=== PATIENT | male | born 1940 | race Caucasian/White ===

== ENCOUNTER 2024-11-23 11:29 | Inpatient (IN) | payer MEDICARE, MEDICAID ==
[~2024-11-23] VITALS: Ht 165.1 cm; Wt 73.0 kg
[~2024-11-23 11:29] MED LIST: DIVA250T4 PO; DOCU-119 PO; LISI-661 PO; OMEP-148 PO; RISP1TAB89 PO
[2024-11-23] MEDS ORDERED: CHOL25TA4 PO (12:07)
[2024-11-23] MEDS ORDERED: LISI-894 PO (12:07)
[2024-11-23] MEDS ORDERED: METF-1211 PO (12:07)
[2024-11-23] MEDS ORDERED: HYDR10TA31 PO (12:07)
[2024-11-23] MEDS ORDERED: AMAN-24 PO (12:07)
[2024-11-23] MEDS ORDERED: DILT-121 PO (12:07)
[2024-11-23] MEDS ORDERED: OLAN5TAB52 PO (12:07)
[2024-11-23] MEDS ORDERED: DAPA10TA PO (12:07)
[2024-11-23] MEDS ORDERED: VALP250S23 PO ×2 (12:07)
[2024-11-23] MEDS: ACETAMINOPHEN 500 MG TABLET PO ONE (12:34)
[2024-11-23 12:35] LABS: BASOPHILS % (AUTO) 0.5 % (0.0-2.0); EOSINOPHILS % (AUTO) 2.1 % (1.0-6.0); HEMATOCRIT 37.1 % (41-53); HEMOGLOBIN 12.2 g/dL (13.5-17.5); LYMPHOCYTES # (AUTO) 1.9 K/uL (1.0-4.8); LYMPHOCYTES % (AUTO) 20.7 % (22.0-44.0); MEAN CORPUSCULAR HEMOGLOBIN 28.9 pg (26.0-34.0); MEAN CORPUSCULAR VOLUME 88 fL (80-100); MONOCYTES % (AUTO) 10.5 % (2.0-9.0); NEUTROPHILS # (AUTO) 6.1 K/uL (1.8-7.7); NEUTROPHILS % (AUTO) 66.2 % (40.0-70.0); PLATELET COUNT (AUTO) 318 K/uL (150-450); RED BLOOD CELL COUNT(AUTO) 4.23 MIL/uL (4.50-5.90); RED CELL DISTRIBUTION WIDTH 15.8 % (11.5-14.5); WHITE BLOOD COUNT (AUTO) 9.2 K/uL (4.5-11.0)
[2024-11-23 12:43] LABS: ANION GAP 11 mmol/L (8-16); CARBON DIOXIDE 24 mmol/L (22-29); CHLORIDE 101 mmol/L (98-107); CREATININE 1.15 mg/dL (0.60-1.30); GLOMERULAR FILTR. RATE CALC > 60 mL/min (>60); GLUCOSE,RANDOM 118 mg/dL (70-110); POTASSIUM 4.2 mmol/L (3.5-5.1); SODIUM SERUM 136 mmol/L (136-145); UREA NITROGEN, BLOOD 19 mg/dL (7-18)
[2024-11-23 12:51] LABS: ALCOHOL, BLOOD (SERUM) < 3 mg/dL (0-10)
[2024-11-23 12:55] LABS: ALBUMIN 2.8 g/dL (3.4-5.0); BILIRUBIN,DIRECT 0.1 mg/dL (0.00-0.20); BILIRUBIN,TOTAL 0.2 mg/dL (0.1-1.0); TOTAL PROTEIN, SERUM 6.9 g/dL (6.4-8.2)
[2024-11-23 12:58] LABS: COVID AG,FIA SOURCE NASAL SWAB
[2024-11-23 14:36] LABS: SARS-COV2 (COVID) ANTIGEN,FIA Negative (Negative)
[2024-11-23 22:01] LABS: APPEARANCE,URINE CLEAR (CLEAR); BILIRUBIN,URINE NEGATIVE (NEGATIVE); COLOR,URINE LIGHT YELLOW (YELLOW); GLUCOSE, URINE (UA) >=1000 mg/dL (NEGATIVE); KETONES,URINE NEGATIVE (NEGATIVE); LEUKOCYTE ESTERASE ,URINE TRACE (NEGATIVE); NITRATE,URINE NEGATIVE (NEGATIVE); OCCULT BLOOD,URINE NEGATIVE (NEGATIVE); PROTEIN,URINE TRACE mg/dL (NEGATIVE); UROBILINOGEN,URINE <=1.0 mg/dL (<=1.0)
[2024-11-23 22:10] LABS: ALCOHOL, URINE DRUG SCREEN NEGATIVE (NEGATIVE); AMPHET/METH SCREEN,URINE NEGATIVE (NEGATIVE); BARBITURATE SCREEN, URINE NEGATIVE (NEGATIVE); BENZODIAZEPINES SCREEN,URINE NEGATIVE (NEGATIVE); CANNABINOID SCREEN,URINE NEGATIVE (NEGATIVE); COCAINE SCREEN,URINE NEGATIVE (NEGATIVE); METHADONE SCREEN, URINE NEGATIVE (NEGATIVE); OPIATE SCREEN,URINE NEGATIVE (NEGATIVE); PHENCYCLIDINE SCREEN,URINE NEGATIVE (NEGATIVE)
[2024-11-23 22:22] LABS: BACTERIA,URINE Few /HPF (None Seen); RBC,URINE 0-2 /HPF (0-2); WBC,URINE 0-2 /HPF (0-5)
[2024-11-23 22:23] LABS: SQUAMOUS EPITHELIAL CELL,UR Rare /LPF (None Seen)
[2024-11-24] MEDS ORDERED: ZOLPIDEM TARTRATE 10 MG TABLET PO PRN (01:30)
[2024-11-24] MEDS ORDERED: LORazepam 2 MG TABLET PO PRN (01:30)
[2024-11-24] MEDS: CloNIDine HCL 0.1 MG TABLET PO ONE (03:55)
[2024-11-24] MEDS: HydrALAZINE HCL 10 MG TABLET PO ONE (04:04)
[2024-11-24 04:46] VITALS: O2SAT 97
[2024-11-24 06:32] LABS: GLUCOMETER DEV NAME(LOC) BV2S.; GLUCOSE,POINT OF CARE 112 MG/DL (70-110)
[2024-11-24 06:42] VITALS: BP 155/84; PULSE 63; RESP 16; TEMP 97.8; O2SAT 98
[2024-11-24 08:08] VITALS: BP 133/88; PULSE 69; RESP 18; TEMP 97; O2SAT 96
[2024-11-24] MEDS ORDERED: ONDANSETRON 4 MG TABLET PO PRN (15:45)
[2024-11-24] MEDS ORDERED: GLUCAGON,HUMAN RECOMBINANT 1 MG VIAL IM PRN (15:45)
[2024-11-24] MEDS ORDERED: OMEPRAZOLE 20 MG CAPSULE PO PRN (15:45)
[2024-11-24] MEDS ORDERED: ALBUTEROL SULFATE HFA 90 MCG/PUFF 8 GM INHALER IH PRN (15:45)
[2024-11-24] MEDS ORDERED: BENZOCAINE/MENTHOL [CEPACOL] LOZENGE PO PRN (15:45)
[2024-11-24] MEDS ORDERED: BACITRACIN 28 GM OINTMENT TP PRN (15:45)
[2024-11-24] MEDS ORDERED: CloNIDine HCL 0.1 MG TABLET PO PRN (15:45)
[2024-11-24] MEDS ORDERED: MAG HYDROX/ALUMINUM HYD/SIMETH ES 30 ML SUSPENSION UDCUP PO PRN (15:45)
[2024-11-24] MEDS ORDERED: MAGNESIUM HYDROXIDE SUSPENSION 30 ML UDCUP PO PRN (15:45)
[2024-11-24] MEDS ORDERED: LOPERAMIDE HCL 2 MG CAPSULE PO PRN (15:45)
[2024-11-24] MEDS ORDERED: PETROLATUM,WHITE 28 GM JELLY TP PRN (15:45)
[2024-11-24] MEDS ORDERED: DOCUSATE SODIUM 100 MG CAPSULE PO PRN (15:45)
[2024-11-24] MEDS ORDERED: MELATONIN 5 MG TABLET PO PRN (17:00)
[2024-11-24] MEDS ORDERED: ChlorproMAZINE HCL 100 MG TABLET PO PRN (17:00)
[2024-11-24] MEDS: MetFORMIN HCL 500 MG TABLET PO SCH (17:00)
[2024-11-24] MEDS ORDERED: LORazepam 0.5 MG TABLET PO PRN (17:00)
[2024-11-24] MEDS: HydrALAZINE HCL 10 MG TABLET PO SCH (17:00)
[2024-11-24 20:00] VITALS: BP 155/88; PULSE 77; RESP 16; TEMP 98.4; O2SAT 97
[2024-11-24] MEDS: VALPROIC ACID 250 MG/5 ML SOLUTION UDCUP PO SCH (21:35)
[2024-11-24] MEDS: OLANZapine 5 MG TABLET PO SCH (21:36)
[2024-11-24] MEDS: INSULIN LISPRO 100 UNITS/ML SQ PRN (21:45)
[2024-11-24 21:56] LABS: GLUCOMETER DEV NAME(LOC) BV2X.3; GLUCOSE,POINT OF CARE 158 MG/DL (70-110)
[2024-11-25 06:35] LABS: GLUCOMETER DEV NAME(LOC) BV2X.3; GLUCOSE,POINT OF CARE 107 MG/DL (70-110)
[2024-11-25 08:41] VITALS: BP 143/87; PULSE 98; RESP 17; TEMP 97.8; O2SAT 97
[2024-11-25] MEDS: LISINOPRIL 20 MG TABLET PO SCH (09:56)
[2024-11-25] MEDS: AMANTADINE HCL 100 MG CAPSULE PO SCH (09:56)
[2024-11-25] MEDS: DAPAGLIFLOZIN PROPANEDIOL 5 MG TABLET PO SCH (09:57)
[2024-11-25] MEDS: DILTIAZEM HCL CD 240 MG ER CAPSULE PO SCH (09:57)
[2024-11-25 11:35] LABS: GLUCOMETER DEV NAME(LOC) BV2X.3; GLUCOSE,POINT OF CARE 164 MG/DL (70-110)
[2024-11-25 16:25] LABS: GLUCOMETER DEV NAME(LOC) BV2X.3; GLUCOSE,POINT OF CARE 118 MG/DL (70-110)
[2024-11-25 20:01] VITALS: RESP 18
[2024-11-25] MEDS: ACETAMINOPHEN 325 MG TABLET PO PRN (20:01)
[2024-11-25 20:20] LABS: GLUCOMETER DEV NAME(LOC) BV2X.3; GLUCOSE,POINT OF CARE 161 MG/DL (70-110)
[2024-11-25 21:01] VITALS: RESP 18
[2024-11-25 21:45] VITALS: BP 137/57; PULSE 63; RESP 18; TEMP 97.6; O2SAT 98
[2024-11-26 06:25] LABS: GLUCOMETER DEV NAME(LOC) BV2X.3; GLUCOSE,POINT OF CARE 81 MG/DL (70-110)
[2024-11-26] MEDS: IBUPROFEN 600 MG TABLET PO PRN (06:37)
[2024-11-26 07:00] VITALS: BP 141/64; PULSE 67; RESP 18; TEMP 97.5; O2SAT 97
[2024-11-26 08:00] VITALS: RESP 17
[2024-11-26] MEDS ORDERED: GuaiFENesin/D-METHORPHAN [SUGAR-FREE] 200-20MG/10 ML SYRUP UDCUP PO PRN (10:30)
[2024-11-26] MEDS ORDERED: MAG HYDROX/ALUMINUM HYD/SIMETH ES 30 ML SUSPENSION UDCUP PO PRN (10:30)
[2024-11-26] MEDS ORDERED: PROMETHAZINE HCL 25 MG TABLET PO PRN (10:30)
[2024-11-26] MEDS ORDERED: ACETAMINOPHEN 325 MG TABLET PO PRN (10:30)
[2024-11-26] MEDS ORDERED: LOPERAMIDE HCL 2 MG CAPSULE PO PRN (10:30)
[2024-11-26] MEDS ORDERED: HydrOXYzine PAMOATE 50 MG CAPSULE PO PRN (10:30)
[2024-11-26] MEDS ORDERED: MAGNESIUM HYDROXIDE SUSPENSION 30 ML UDCUP PO PRN (10:30)
[2024-11-26 11:25] LABS: GLUCOMETER DEV NAME(LOC) ER.7; GLUCOSE,POINT OF CARE 150 MG/DL (70-110)
[2024-11-26 11:41] LABS: GLUCOMETER DEV NAME(LOC) BV2X.3; GLUCOSE,POINT OF CARE 165 MG/DL (70-110)
[2024-11-26] MEDS ORDERED: LORazepam 1 MG TABLET PO PRN (14:00)
[2024-11-26 16:31] LABS: GLUCOMETER DEV NAME(LOC) BV2X.3; GLUCOSE,POINT OF CARE 171 MG/DL (70-110)
[2024-11-26] MEDS: THIAMINE 100 MG TABLET PO SCH (16:33)
[2024-11-26] MEDS: TUBERCULIN, PURIFIED PROTEIN DERIVATIVE 5 TU/0.1 ML SYRINGE ID ONE (17:53)
[2024-11-26 20:06] VITALS: BP 152/79; PULSE 69; RESP 18; TEMP 97.3; O2SAT 97
[2024-11-26 22:00] LABS: GLUCOMETER DEV NAME(LOC) BV2X.3; GLUCOSE,POINT OF CARE 136 MG/DL (70-110)
[2024-11-27 06:01] LABS: GLUCOMETER DEV NAME(LOC) BV2X.3; GLUCOSE,POINT OF CARE 126 MG/DL (70-110)
[2024-11-27 08:39] VITALS: BP 163/70; PULSE 61; RESP 17; TEMP 97.5; O2SAT 99
[2024-11-27] MEDS: OLANZapine 5 MG RAPDIS TABLET PO PRN (09:02)
[2024-11-27] MEDS: FOLIC ACID 1 MG TABLET PO SCH (09:03)
[2024-11-27] MEDS: MULTIVITAMINS WITH MINERALS, THERAPEUTIC TABLET PO SCH (09:03)
[2024-11-27 09:16] LABS: CHOL/HDL RATIO 3.1 (4.2-7.3); FREE T4 (FREE THYROXINE) 0.97 ng/dL (0.76-1.46); THYROID STIMULATING HORMONE 1.17 uIU/mL (0.36-3.74)
[2024-11-27 11:46] LABS: GLUCOMETER DEV NAME(LOC) BV2X.3; GLUCOSE,POINT OF CARE 130 MG/DL (70-110)
[2024-11-27 16:29] VITALS: BP 177/97; PULSE 70; RESP 18
[2024-11-27 17:00] LABS: GLUCOMETER DEV NAME(LOC) BV2X.3; GLUCOSE,POINT OF CARE 146 MG/DL (70-110)
[2024-11-27] MEDS: OLANZapine 5 MG TABLET PO SCH (17:33)
[2024-11-27 20:13] VITALS: BP 169/60; PULSE 60; RESP 18; TEMP 97.5; O2SAT 97
[2024-11-27 20:45] LABS: GLUCOMETER DEV NAME(LOC) BV2X.3; GLUCOSE,POINT OF CARE 131 MG/DL (70-110)
[2024-11-28 06:40] LABS: GLUCOMETER DEV NAME(LOC) BV2X.3; GLUCOSE,POINT OF CARE 105 MG/DL (70-110)
[2024-11-28 08:11] VITALS: BP 135/69; PULSE 65; RESP 18; TEMP 98.4; O2SAT 98
[2024-11-28] MEDS ORDERED: VALP250S23 PO (11:10)
[2024-11-28] MEDS ORDERED: MELA5TAB40 PO (11:10)
[2024-11-28] MEDS ORDERED: AMAN-24 PO (11:10)
[2024-11-28] MEDS ORDERED: OLAN5TAB52 PO (11:10)
[2024-11-28] MEDS ORDERED: FOLI0.4T6 PO (11:50)
[2024-11-28] MEDS ORDERED: FOLI-130 PO (11:51)
[2024-11-28] MEDS ORDERED: MULT-1303 PO (11:51)
[2024-11-28 13:06] LABS: GLUCOMETER DEV NAME(LOC) BV2X.3; GLUCOSE,POINT OF CARE 137 MG/DL (70-110)
[2024-11-28 16:36] VITALS: BP 145/62; PULSE 60; RESP 18
[2024-11-28 16:45] LABS: GLUCOMETER DEV NAME(LOC) BV2X.3; GLUCOSE,POINT OF CARE 181 MG/DL (70-110)
[2024-11-28 20:40] VITALS: BP 145/62; PULSE 60; RESP 17; TEMP 98.1; O2SAT 96
[2024-11-28 20:41] LABS: GLUCOMETER DEV NAME(LOC) BV2X.3; GLUCOSE,POINT OF CARE 150 MG/DL (70-110)
[2024-11-29 06:06] LABS: GLUCOMETER DEV NAME(LOC) BV2X.3; GLUCOSE,POINT OF CARE 93 MG/DL (70-110)
[2024-11-29 08:24] VITALS: BP 158/69; PULSE 61; RESP 18; TEMP 97.2; O2SAT 97
[2024-11-29 12:40] LABS: GLUCOMETER DEV NAME(LOC) BV2X.3; GLUCOSE,POINT OF CARE 101 MG/DL (70-110)
[2024-11-29 20:19] VITALS: BP 144/65; PULSE 60; RESP 18; TEMP 97.8; O2SAT 96
[2024-11-30 06:35] LABS: GLUCOMETER DEV NAME(LOC) BV2X.3; GLUCOSE,POINT OF CARE 101 MG/DL (70-110)
[2024-11-30 08:08] VITALS: BP 117/74; PULSE 58; RESP 16; TEMP 97.4; O2SAT 96
[2024-11-30 12:01] LABS: GLUCOMETER DEV NAME(LOC) BV2X.3; GLUCOSE,POINT OF CARE 164 MG/DL (70-110)
[2024-11-30 21:50] VITALS: BP 139/62; PULSE 58; RESP 20; TEMP 96.6; O2SAT 97
[2024-12-01 03:36] LABS: GLUCOMETER DEV NAME(LOC) BV2X.3; GLUCOSE,POINT OF CARE 137 MG/DL (70-110)
[2024-12-01 03:36] LABS: GLUCOMETER DEV NAME(LOC) BV2X.3; GLUCOSE,POINT OF CARE 155 MG/DL (70-110)
[2024-12-01 07:10] LABS: GLUCOMETER DEV NAME(LOC) BV2X.3; GLUCOSE,POINT OF CARE 120 MG/DL (70-110)
[2024-12-01 08:05] VITALS: BP 146/78; PULSE 61; RESP 18; TEMP 98.3; O2SAT 97
[2024-12-01 11:35] LABS: GLUCOMETER DEV NAME(LOC) BV2X.3; GLUCOSE,POINT OF CARE 119 MG/DL (70-110)
[2024-12-01 12:36] VITALS: BP 137/59; PULSE 60; RESP 18; O2SAT 97
[2024-12-01 16:40] LABS: GLUCOMETER DEV NAME(LOC) BV2X.3; GLUCOSE,POINT OF CARE 166 MG/DL (70-110)
[2024-12-01 20:00] VITALS: RESP 18
[2024-12-01 20:56] LABS: GLUCOMETER DEV NAME(LOC) BV2X.3; GLUCOSE,POINT OF CARE 155 MG/DL (70-110)
[2024-12-02 06:00] LABS: GLUCOMETER DEV NAME(LOC) BV2X.3; GLUCOSE,POINT OF CARE 97 MG/DL (70-110)
[2024-12-02 08:39] VITALS: BP 148/78; PULSE 62; RESP 18; TEMP 97.1; O2SAT 97
[2024-12-02 11:46] LABS: GLUCOMETER DEV NAME(LOC) BV2X.3; GLUCOSE,POINT OF CARE 99 MG/DL (70-110)
[2024-12-02 16:50] LABS: GLUCOMETER DEV NAME(LOC) BV2X.3; GLUCOSE,POINT OF CARE 246 MG/DL (70-110)
[2024-12-02 20:53] VITALS: BP 145/60; PULSE 65; RESP 18; TEMP 98.3; O2SAT 95
[2024-12-02 22:41] LABS: GLUCOMETER DEV NAME(LOC) BV2X.3; GLUCOSE,POINT OF CARE 159 MG/DL (70-110)
[2024-12-03 06:25] LABS: GLUCOMETER DEV NAME(LOC) BV2X.3; GLUCOSE,POINT OF CARE 98 MG/DL (70-110)
[2024-12-03 08:35] VITALS: BP 134/84; PULSE 63; RESP 20; TEMP 98.2; O2SAT 96
[2024-12-03 11:50] LABS: GLUCOMETER DEV NAME(LOC) BV2X.3; GLUCOSE,POINT OF CARE 166 MG/DL (70-110)
[2024-12-03 18:21] LABS: GLUCOMETER DEV NAME(LOC) BV2X.3; GLUCOSE,POINT OF CARE 165 MG/DL (70-110)
[2024-12-03 20:50] LABS: GLUCOMETER DEV NAME(LOC) BV2X.3; GLUCOSE,POINT OF CARE 118 MG/DL (70-110)
[2024-12-03 21:30] VITALS: BP 137/60; PULSE 62; RESP 18; TEMP 97.1; O2SAT 96
[2024-12-04 08:15] VITALS: BP 134/62; PULSE 58; RESP 18; TEMP 98; O2SAT 95
[2024-12-04 13:50] VITALS: BP 127/66; PULSE 57; RESP 17; O2SAT 96
[2024-12-04 14:11] LABS: GLUCOMETER DEV NAME(LOC) BV2X.3; GLUCOSE,POINT OF CARE 122 MG/DL (70-110)
[2024-12-04 16:38] VITALS: BP 119/64; PULSE 60; RESP 18; O2SAT 96
[2024-12-04 16:40] LABS: GLUCOMETER DEV NAME(LOC) BV2X.3; GLUCOSE,POINT OF CARE 162 MG/DL (70-110)
[2024-12-04 20:08] VITALS: BP 103/58; PULSE 60; RESP 17; TEMP 97.5; O2SAT 95
[2024-12-04 20:45] LABS: GLUCOMETER DEV NAME(LOC) BV2X.3; GLUCOSE,POINT OF CARE 109 MG/DL (70-110)
[2024-12-05 06:01] LABS: GLUCOMETER DEV NAME(LOC) BV2X.3; GLUCOSE,POINT OF CARE 102 MG/DL (70-110)
[2024-12-05 08:00] VITALS: BP 147/71; PULSE 61; RESP 16; TEMP 98.4; O2SAT 97
[2024-12-05 11:51] LABS: GLUCOMETER DEV NAME(LOC) BV2X.3; GLUCOSE,POINT OF CARE 145 MG/DL (70-110)
[2024-12-05 16:39] VITALS: BP 136/68; PULSE 60; RESP 18
[2024-12-05 16:40] LABS: GLUCOMETER DEV NAME(LOC) BV2X.3; GLUCOSE,POINT OF CARE 194 MG/DL (70-110)
[2024-12-05 20:03] VITALS: BP 129/66; PULSE 60; RESP 18; TEMP 97.8; O2SAT 97
[2024-12-05 20:40] LABS: GLUCOMETER DEV NAME(LOC) BV2X.3; GLUCOSE,POINT OF CARE 116 MG/DL (70-110)
[2024-12-06 06:01] LABS: GLUCOMETER DEV NAME(LOC) BV2X.3; GLUCOSE,POINT OF CARE 93 MG/DL (70-110)
[2024-12-06 08:34] VITALS: BP 129/63; PULSE 68; RESP 17; TEMP 97.7; O2SAT 96
[2024-12-06 12:15] LABS: GLUCOMETER DEV NAME(LOC) BV2X.3; GLUCOSE,POINT OF CARE 132 MG/DL (70-110)
[2024-12-06 16:56] LABS: GLUCOMETER DEV NAME(LOC) BV2X.3; GLUCOSE,POINT OF CARE 199 MG/DL (70-110)
[2024-12-06 20:09] VITALS: BP 116/60; PULSE 60; RESP 18; TEMP 97.8; O2SAT 95
[2024-12-06 21:05] LABS: GLUCOMETER DEV NAME(LOC) BV2X.3; GLUCOSE,POINT OF CARE 152 MG/DL (70-110)
[2024-12-07] MEDS: ZOLPIDEM TARTRATE 5 MG TABLET PO PRN (01:37)
[2024-12-07 06:51] LABS: GLUCOMETER DEV NAME(LOC) BV2X.3; GLUCOSE,POINT OF CARE 109 MG/DL (70-110)
[2024-12-07 08:18] VITALS: BP 140/74; PULSE 64; RESP 18; TEMP 97.5; O2SAT 96
[2024-12-07 12:01] LABS: GLUCOMETER DEV NAME(LOC) BV2X.3; GLUCOSE,POINT OF CARE 238 MG/DL (70-110)
== END 2024-12-07 13:00 | DRG 885 ==
LOC: EMS 12:38 → B2S 11-24 04:00 → B2X 11-24 18:08
PROVIDERS: ADMIT Psychiatry & Neurology Psychiatry; ATTEND Psychiatry & Neurology Psychiatry
DX: F20.0 Paranoid schizophrenia (principal); Z59.00 Homelessness unspecified; I10 Essential (primary) hypertension; Z20.822 Contact with and (suspected) exposure to COVID-19; J44.9 Chronic obstructive pulmonary disease, unspecified; K59.00 Constipation, unspecified; K02.9 Dental caries, unspecified; E11.9 Type 2 diabetes mellitus without complications; K21.9 Gastro-esophageal reflux disease without esophagitis; D64.9 Anemia, unspecified; F17.200 Nicotine dependence, unspecified, uncomplicated
CPT/HCPCS: 71046; 80048; 80061; 80076; 80164; 80307; 81001; 82962; 84439; 84443; 85025; 87081; G0480; 36415-L1; 36415-TC

== ENCOUNTER 2025-04-17 17:22 | Inpatient (IN) | payer MEDICARE, MEDICAID ==
[~2025-04-17] VITALS: Ht 167.6 cm; Wt 64.0 kg
[~2025-04-17 17:22] MED LIST changes: +AMAN-24 PO; +DAPA10TA PO; +DILT-121 PO; -DIVA250T4 PO; -DOCU-119 PO; +FOLI-130 PO; +HYDR10TA31 PO; -LISI-661 PO; +LISI-894 PO; +MELA5TAB40 PO; +METF-1211 PO; +MULT-1303 PO; +OLAN5TAB52 PO; -OMEP-148 PO; -RISP1TAB89 PO; +VALP250S23 PO
[2025-04-17] MEDS ORDERED: LORA0.5T20 PO (17:53)
[2025-04-17 18:16] LABS: PLATELET COUNT (AUTO) 264 K/uL (150-450); RED BLOOD CELL COUNT(AUTO) 5.53 MIL/uL (4.50-5.90); RED CELL DISTRIBUTION WIDTH 16.0 % (11.5-14.5); WHITE BLOOD COUNT (AUTO) 8.6 K/uL (4.5-11.0)
[2025-04-17 18:22] LABS: CALCIUM, TOTAL 9.3 mg/dL (8.8-10.5); CREATININE 1.82 mg/dL (0.60-1.30); GLOMERULAR FILTR. RATE CALC 36.0 mL/min (>60); GLUCOSE,RANDOM 180.0 mg/dL (70-110); SODIUM SERUM 139.0 mmol/L (136-145); UREA NITROGEN, BLOOD 45.0 mg/dL (7-18)
[2025-04-17] MEDS: LORazepam 2 MG/ML VIAL IM ONE (19:11)
[2025-04-17] MEDS: SODIUM CHLORIDE 0.9% 2,000 ML IV ONE (20:18)
[2025-04-17 20:37] LABS: COVID AG,FIA SOURCE NASAL SWAB
[2025-04-17 20:59] LABS: SARS-COV2 (COVID) ANTIGEN,FIA Negative (Negative)
[2025-04-17] MEDS ORDERED: ZOLPIDEM TARTRATE 10 MG TABLET PO PRN (21:15)
[2025-04-18 05:25] LABS: PLATELET COUNT (AUTO) 216 K/uL (150-450); RED BLOOD CELL COUNT(AUTO) 5.14 MIL/uL (4.50-5.90); RED CELL DISTRIBUTION WIDTH 16.0 % (11.5-14.5); WHITE BLOOD COUNT (AUTO) 8.8 K/uL (4.5-11.0)
[2025-04-18 06:27] LABS: ASPARTATE AMINOTRANSFERASE 27.0 U/L (15-37); CALCIUM, TOTAL 8.6 mg/dL (8.8-10.5); CHOL/HDL RATIO 2.7 (4.2-7.3); CREATININE 1.59 mg/dL (0.60-1.30); GLOMERULAR FILTR. RATE CALC 42.0 mL/min (>60); GLUCOSE,RANDOM 122.0 mg/dL (70-110); LDL CHOL (CALC.) 71.0 mg/dL (0-130); SODIUM SERUM 144.0 mmol/L (136-145); TOTAL PROTEIN, SERUM 6.5 g/dL (6.4-8.2); UREA NITROGEN, BLOOD 42.0 mg/dL (7-18)
[2025-04-18 06:30] VITALS: O2SAT 95
[2025-04-18] MEDS: DILTIAZEM HCL CD 240 MG ER CAPSULE PO SCH (10:30)
[2025-04-18] MEDS: DAPAGLIFLOZIN PROPANEDIOL 5 MG TABLET PO SCH (10:30)
[2025-04-18 12:43] VITALS: PULSE 74; RESP 18; O2SAT 97
[2025-04-18] MEDS ORDERED: ACETAMINOPHEN 325 MG TABLET PO PRN (16:00)
[2025-04-18] MEDS ORDERED: ONDANSETRON 4 MG TABLET PO PRN (16:00)
[2025-04-18] MEDS ORDERED: LOPERAMIDE HCL 2 MG CAPSULE PO PRN (16:00)
[2025-04-18] MEDS ORDERED: GuaiFENesin/D-METHORPHAN [SUGAR-FREE] 200-20MG/10 ML SYRUP UDCUP PO PRN (16:00)
[2025-04-18] MEDS ORDERED: NICOTINE 14 MG/24 HOUR PATCH TD PRN (16:00)
[2025-04-18] MEDS ORDERED: PETROLATUM,WHITE 28 GM JELLY TP PRN (16:00)
[2025-04-18] MEDS ORDERED: MAG HYDROX/ALUMINUM HYD/SIMETH ES 30 ML SUSPENSION UDCUP PO PRN (16:00)
[2025-04-18] MEDS ORDERED: DOCUSATE SODIUM 100 MG CAPSULE PO PRN (16:00)
[2025-04-18] MEDS ORDERED: MAGNESIUM HYDROXIDE SUSPENSION 30 ML UDCUP PO PRN (16:00)
[2025-04-18] MEDS ORDERED: ALBUTEROL SULFATE HFA 90 MCG/PUFF 8 GM INHALER IH PRN (16:00)
[2025-04-18] MEDS: OLANZapine 5 MG RAPDIS TABLET PO SCH (17:00)
[2025-04-18] MEDS: DIVALPROEX SODIUM 125 MG DR CAPSULE PO SCH (17:00)
[2025-04-18] MEDS: LORazepam 2 MG/ML VIAL IM ONE (20:06)
[2025-04-18] MEDS: MELATONIN 5 MG TABLET PO SCH (21:00)
[2025-04-18 21:25] LABS: GLUCOMETER DEV NAME(LOC) 3E.I 2; GLUCOSE,POINT OF CARE 101 MG/DL (70-110)
[2025-04-18 21:26] VITALS: RESP 18
[2025-04-19 08:29] VITALS: RESP 17
[2025-04-19 20:39] VITALS: RESP 18
[2025-04-20 08:32] VITALS: RESP 18
[2025-04-20] MEDS: LORazepam 2 MG/ML VIAL IM ONE (10:37)
[2025-04-20 17:50] LABS: GLUCOMETER DEV NAME(LOC) 3E.I 2; GLUCOSE,POINT OF CARE 213 MG/DL (70-110)
[2025-04-20 21:21] VITALS: RESP 17
[2025-04-21 10:07] LABS: CALCIUM, TOTAL 8.7 mg/dL (8.8-10.5); CREATININE 1.23 mg/dL (0.60-1.30); GLOMERULAR FILTR. RATE CALC 56.0 mL/min (>60); GLUCOSE,RANDOM 99.0 mg/dL (70-110); SODIUM SERUM 142.0 mmol/L (136-145); UREA NITROGEN, BLOOD 33.0 mg/dL (7-18)
[2025-04-21 10:13] LABS: CHOL/HDL RATIO 2.2 (4.2-7.3); LDL CHOL (CALC.) 65.0 mg/dL (0-130)
[2025-04-21 20:42] VITALS: RESP 18
[2025-04-22 08:40] VITALS: RESP 18
[2025-04-23 10:18] VITALS: RESP 17
[2025-04-23 20:24] VITALS: RESP 18
[2025-04-23 21:41] LABS: GLUCOMETER DEV NAME(LOC) 3E.I 2; GLUCOSE,POINT OF CARE 148 MG/DL (70-110)
[2025-04-24 09:00] VITALS: RESP 17
[2025-04-24 20:20] VITALS: RESP 18
[2025-04-25 08:21] VITALS: RESP 18
[2025-04-25 19:35] VITALS: BP 199/97; PULSE 79; RESP 18
[2025-04-25 20:17] VITALS: BP 199/97; PULSE 79; RESP 18; O2SAT 98
[2025-04-25 20:35] VITALS: BP 150/92; PULSE 83; RESP 18
[2025-04-26 09:17] VITALS: RESP 17
[2025-04-26 22:23] VITALS: RESP 17; TEMP 98.1
[2025-04-27 08:32] VITALS: RESP 18
[2025-04-27 20:00] VITALS: RESP 18; TEMP 97.1
[2025-04-28 07:53] LABS: PLATELET COUNT (AUTO) 264 K/uL (150-450); RED BLOOD CELL COUNT(AUTO) 5.59 MIL/uL (4.50-5.90); RED CELL DISTRIBUTION WIDTH 16.6 % (11.5-14.5); WHITE BLOOD COUNT (AUTO) 6.8 K/uL (4.5-11.0)
[2025-04-28 08:17] LABS: CALCIUM, TOTAL 10.1 mg/dL (8.8-10.5); CREATININE 1.22 mg/dL (0.60-1.30); GLOMERULAR FILTR. RATE CALC 57.0 mL/min (>60); GLUCOSE,RANDOM 117.0 mg/dL (70-110); SODIUM SERUM 145.0 mmol/L (136-145); UREA NITROGEN, BLOOD 26.0 mg/dL (7-18)
[2025-04-28 08:20] LABS: PHOSPHORUS 3.6 mg/dL (2.5-4.9)
[2025-04-28 09:06] VITALS: RESP 16
[2025-04-29 10:03] VITALS: TEMP 98
[2025-04-29 21:00] VITALS: RESP 18
[2025-04-30 10:48] VITALS: RESP 18
[2025-04-30 20:29] VITALS: RESP 18
[2025-05-01 08:11] VITALS: RESP 16
[2025-05-01] MEDS ORDERED: DIVA125C20 PO (10:05)
== END 2025-05-01 16:05 | disposition home or self-care (01) | DRG 885 ==
LOC: EMS 17:22 → 3EX 04-18 09:25
PROVIDERS: ADMIT Psychiatry & Neurology Child & Adolescent Psychiatry; ATTEND Psychiatry & Neurology Child & Adolescent Psychiatry
PROC: GZ56ZZZ Individual Psychotherapy, Supportive (ICD-10-PCS; 2025-04-18)
PROC: GZ58ZZZ Individual Psychotherapy, Cognitive-Behavioral (ICD-10-PCS; 2025-04-18)
PROC: GZ52ZZZ Individual Psychotherapy, Cognitive (ICD-10-PCS; 2025-04-22)
PROC: GZHZZZZ Group Psychotherapy (ICD-10-PCS; principal; 2025-04-26)
DX: F20.0 Paranoid schizophrenia (principal); N18.9 Chronic kidney disease, unspecified; F15.20 Other stimulant dependence, uncomplicated; Z59.00 Homelessness unspecified; I12.9 Hypertensive chronic kidney disease with stage 1 through stage 4 chronic kidney disease, or unspecified chronic kidney disease; J44.9 Chronic obstructive pulmonary disease, unspecified; F01.50 Vascular dementia, unspecified severity, without behavioral disturbance, psychotic disturbance, mood disturbance, and anxiety; E78.5 Hyperlipidemia, unspecified; E11.22 Type 2 diabetes mellitus with diabetic chronic kidney disease; K21.9 Gastro-esophageal reflux disease without esophagitis; E86.0 Dehydration; Z20.822 Contact with and (suspected) exposure to COVID-19; Z86.73 Personal history of transient ischemic attack (TIA), and cerebral infarction without residual deficits; Z87.891 Personal history of nicotine dependence; Z79.899 Other long term (current) drug therapy
CPT/HCPCS: 80048; 80053; 80061; 80164; 82962; 83036; 83735; 84100; 84436; 84443; 85025; 87081; 99291; G0378; G0480; J1200; J1630; J2060; J7030

== ENCOUNTER 2025-05-08 20:36 | Inpatient (IN) | payer MEDICARE, MEDICAID ==
[~2025-05-08] VITALS: Ht 167.6 cm; Wt 56.0 kg
[~2025-05-08 20:36] MED LIST changes: -DILT-121 PO; +DIVA125C20 PO; -FOLI-130 PO; -HYDR10TA31 PO; -LISI-894 PO; -MULT-1303 PO; -VALP250S23 PO
[2025-05-08] MEDS ORDERED: LORazepam 2 MG/ML VIAL ONE (22:29)
[2025-05-08] MEDS: LORazepam 2 MG/ML VIAL IM ONE (22:37)
[2025-05-08 22:54] LABS: PLATELET COUNT (AUTO) 228 K/uL (150-450); RED BLOOD CELL COUNT(AUTO) 6.44 MIL/uL (4.50-5.90); RED CELL DISTRIBUTION WIDTH 17.2 % (11.5-14.5); WHITE BLOOD COUNT (AUTO) 9.3 K/uL (4.5-11.0)
[2025-05-08 23:05] LABS: CREATININE 4.07 mg/dL (0.60-1.30); GLUCOSE,RANDOM 180 mg/dL (70-110); SODIUM SERUM 160 mmol/L (136-145)
[2025-05-08 23:06] LABS: CALCIUM, TOTAL 10.8 mg/dL (8.8-10.5); GLOMERULAR FILTR. RATE CALC 14 mL/min (>60)
[2025-05-08 23:11] LABS: ALCOHOL, BLOOD (SERUM) < 3 mg/dL (0-10)
[2025-05-08 23:18] LABS: ASPARTATE AMINOTRANSFERASE 39 U/L (15-37); TOTAL PROTEIN, SERUM 8.8 g/dL (6.4-8.2)
[2025-05-08 23:19] LABS: COVID AG,FIA SOURCE NPH
[2025-05-08 23:21] LABS: VALPROIC ACID < 3 mcg/mL (50-100)
[2025-05-08 23:22] LABS: UREA NITROGEN, BLOOD 127 mg/dL (7-18)
[2025-05-08 23:26] LABS: SARS-COV2 (COVID) ANTIGEN,FIA Negative (Negative)
[2025-05-09] MEDS: SODIUM CHLORIDE 0.9% 1,000 ML IV ONE ×2 (00:09→16:31)
[2025-05-09] MEDS: DEXTROSE 5%-WATER 1,000 ML IV ONE (03:59)
[2025-05-09 07:16] VITALS: BP_SYST 102; BP_SYST 116; BP_DIAS 70; PULSE 69; RESP 18; TEMP 96; TEMP 98; O2SAT 94
[2025-05-09] MEDS ORDERED: MAGNESIUM HYDROXIDE SUSPENSION 30 ML UDCUP PO PRN (13:15)
[2025-05-09] MEDS ORDERED: BISACODYL 10 MG RECTAL RECTAL SUPPOSITORY PR PRN (13:15)
[2025-05-09] MEDS ORDERED: ZOLPIDEM TARTRATE 5 MG TABLET PO PRN (13:15)
[2025-05-09] MEDS ORDERED: MORPHINE SULFATE 2 MG/ML SYRINGE IVP PRN (13:15)
[2025-05-09] MEDS ORDERED: ACETAMINOPHEN 325 MG TABLET PO PRN (13:15)
[2025-05-09] MEDS ORDERED: ONDANSETRON HCL 4 MG/2 ML VIAL IVP PRN (13:15)
[2025-05-09 15:08] VITALS: BP 126/71; PULSE 87; RESP 18; TEMP 97; O2SAT 96
[2025-05-09] MEDS: HEPARIN SODIUM,PORCINE 5,000 UNITS/ML VIAL SQ SCH (16:32)
[2025-05-09 20:39] VITALS: BP 150/84; PULSE 90; RESP 19; TEMP 97.5; O2SAT 97
[2025-05-09 20:44] VITALS: BP 150/84; PULSE 90; RESP 19; TEMP 97.3; O2SAT 94
[2025-05-09] MEDS: DOCUSATE SODIUM 100 MG CAPSULE PO SCH (21:00)
[2025-05-09] MEDS: DEXTROSE 5%-WATER 1,000 ML IV SCH (23:16)
[2025-05-10 00:23] VITALS: BP 153/90; PULSE 88; RESP 18
[2025-05-10 04:08] VITALS: BP 143/87; PULSE 84; RESP 18; TEMP 97.6; O2SAT 96
[2025-05-10 05:11] LABS: GLUCOMETER DEV NAME(LOC) 5N.2C; GLUCOSE,POINT OF CARE 169 MG/DL (70-110)
[2025-05-10 06:13] LABS: RED BLOOD CELL COUNT(AUTO) 5.14 MIL/uL (4.50-5.90); RED CELL DISTRIBUTION WIDTH 16.8 % (11.5-14.5); WHITE BLOOD COUNT (AUTO) 8.6 K/uL (4.5-11.0)
[2025-05-10 06:29] LABS: CALCIUM, TOTAL 9.6 mg/dL (8.8-10.5); CREATININE 3.64 mg/dL (0.60-1.30); GLOMERULAR FILTR. RATE CALC 16.0 mL/min (>60); GLUCOSE,RANDOM 180.0 mg/dL (70-110); SODIUM SERUM 160.0 mmol/L (136-145)
[2025-05-10 06:42] LABS: UREA NITROGEN, BLOOD 129.0 mg/dL (7-18)
[2025-05-10 06:55] LABS: PLATELET COUNT (AUTO) 172 K/uL (150-450)
[2025-05-10 08:10] VITALS: BP 132/86; PULSE 86; RESP 18; TEMP 98; O2SAT 97
[2025-05-10] MEDS: PANTOPRAZOLE SODIUM 40 MG DR TABLET PO SCH (08:33)
[2025-05-10 11:20] VITALS: BP 130/74; PULSE 67; RESP 18; TEMP 97.3; O2SAT 96
[2025-05-10 14:58] LABS: CALCIUM, TOTAL 9.6 mg/dL (8.8-10.5); CREATININE 3.07 mg/dL (0.60-1.30); GLOMERULAR FILTR. RATE CALC 20.0 mL/min (>60); GLUCOSE,RANDOM 157.0 mg/dL (70-110); SODIUM SERUM 158.0 mmol/L (136-145)
[2025-05-10 15:01] LABS: UREA NITROGEN, BLOOD 122.0 mg/dL (7-18)
[2025-05-10 16:08] VITALS: BP 138/80; PULSE 76; RESP 18; TEMP 98; O2SAT 97
[2025-05-10 19:16] VITALS: BP 140/87; PULSE 72; RESP 19; TEMP 97.5; O2SAT 95
[2025-05-11 00:36] VITALS: BP 138/91; PULSE 82; RESP 18; TEMP 98.4; O2SAT 95
[2025-05-11 04:10] VITALS: BP 146/88; PULSE 79; RESP 18; TEMP 97.5; O2SAT 95
[2025-05-11 06:03] LABS: CALCIUM, TOTAL 9.6 mg/dL (8.8-10.5); CREATININE 2.35 mg/dL (0.60-1.30); GLOMERULAR FILTR. RATE CALC 27.0 mL/min (>60); GLUCOSE,RANDOM 161.0 mg/dL (70-110); SODIUM SERUM 155.0 mmol/L (136-145)
[2025-05-11 06:05] LABS: PHOSPHORUS 3.5 mg/dL (2.5-4.9); UREA NITROGEN, BLOOD 102.0 mg/dL (7-18)
[2025-05-11 06:06] LABS: PLATELET COUNT (AUTO) 169 K/uL (150-450); RED BLOOD CELL COUNT(AUTO) 5.07 MIL/uL (4.50-5.90); RED CELL DISTRIBUTION WIDTH 16.9 % (11.5-14.5); WHITE BLOOD COUNT (AUTO) 8.1 K/uL (4.5-11.0)
[2025-05-11 06:49] LABS: CREATININE,URINE RANDOM 118.0 mg/dL (30.0-125.0); UREA NITROGEN,URINE RANDOM 1454.0 mg/dL (350-1000)
[2025-05-11 09:12] VITALS: BP 132/68; PULSE 62; RESP 17; TEMP 97.5
[2025-05-11 16:29] VITALS: BP 129/87; PULSE 65; RESP 18; TEMP 97.5; O2SAT 96
[2025-05-11 20:04] VITALS: BP 146/83; PULSE 64; RESP 19; O2SAT 96
[2025-05-12 08:22] VITALS: BP 144/77; PULSE 67; RESP 18; TEMP 98.2; O2SAT 96
[2025-05-12 11:39] VITALS: BP 135/74; PULSE 59; RESP 19; TEMP 97.5; O2SAT 97
[2025-05-12 11:52] LABS: PLATELET COUNT (AUTO) 167 K/uL (150-450); RED BLOOD CELL COUNT(AUTO) 4.87 MIL/uL (4.50-5.90); RED CELL DISTRIBUTION WIDTH 16.6 % (11.5-14.5); WHITE BLOOD COUNT (AUTO) 7.9 K/uL (4.5-11.0)
[2025-05-12 11:55] LABS: GLUCOMETER DEV NAME(LOC) 5S.2D; GLUCOSE,POINT OF CARE 135 MG/DL (70-110)
[2025-05-12 12:00] LABS: CALCIUM, TOTAL 8.8 mg/dL (8.8-10.5); CREATININE 1.79 mg/dL (0.60-1.30); GLOMERULAR FILTR. RATE CALC 37.0 mL/min (>60); GLUCOSE,RANDOM 127.0 mg/dL (70-110); SODIUM SERUM 151.0 mmol/L (136-145); UREA NITROGEN, BLOOD 69.0 mg/dL (7-18)
[2025-05-12 15:20] VITALS: BP 132/78; PULSE 70; RESP 18; TEMP 98; O2SAT 97
[2025-05-13 00:41] VITALS: BP 157/53; PULSE 53; RESP 18
[2025-05-13 05:51] VITALS: BP 171/86; PULSE 66; RESP 18; O2SAT 98
[2025-05-13 08:26] LABS: CALCIUM, TOTAL 9.1 mg/dL (8.8-10.5); CREATININE 1.59 mg/dL (0.60-1.30); GLOMERULAR FILTR. RATE CALC 42.0 mL/min (>60); GLUCOSE,RANDOM 142.0 mg/dL (70-110); SODIUM SERUM 146.0 mmol/L (136-145); UREA NITROGEN, BLOOD 58.0 mg/dL (7-18)
[2025-05-13 08:45] VITALS: BP 170/88; PULSE 82; RESP 19; TEMP 98; O2SAT 100
[2025-05-13 11:33] VITALS: BP 154/68; PULSE 78; RESP 20
[2025-05-13 15:15] VITALS: BP 142/82; PULSE 59; RESP 19; O2SAT 94
[2025-05-13 22:00] VITALS: BP 146/78; PULSE 76; RESP 20; TEMP 98.1; O2SAT 100
[2025-05-14 04:35] VITALS: BP 160/85; PULSE 66; RESP 18; O2SAT 96
[2025-05-14 05:56] LABS: GLUCOMETER DEV NAME(LOC) 6S.1D; GLUCOSE,POINT OF CARE 149 MG/DL (70-110)
[2025-05-14 07:15] LABS: CALCIUM, TOTAL 8.8 mg/dL (8.8-10.5); CREATININE 1.3 mg/dL (0.60-1.30); GLOMERULAR FILTR. RATE CALC 53.0 mL/min (>60); GLUCOSE,RANDOM 131.0 mg/dL (70-110); SODIUM SERUM 138.0 mmol/L (136-145); UREA NITROGEN, BLOOD 35.0 mg/dL (7-18)
[2025-05-14] MEDS: POTASSIUM CHLORIDE 10% 40 MEQ/30 ML LIQUID UDCUP PO ONE (14:00)
[2025-05-15 06:24] LABS: CALCIUM, TOTAL 8.9 mg/dL (8.8-10.5); CREATININE 1.14 mg/dL (0.60-1.30); GLOMERULAR FILTR. RATE CALC > 60 mL/min (>60); GLUCOSE,RANDOM 96 mg/dL (70-110); SODIUM SERUM 138 mmol/L (136-145); UREA NITROGEN, BLOOD 24 mg/dL (7-18)
[2025-05-15] MEDS: POTASSIUM CHLORIDE 20 MEQ ER TABLET PO ONE (12:45)
[2025-05-15] MEDS: LORazepam 2 MG/ML VIAL IM ONE (15:09)
[2025-05-15 20:06] VITALS: BP 115/73; PULSE 55; RESP 18; TEMP 97.7; O2SAT 97
[2025-05-16] MEDS: DEXTROSE 5%-LACTATED RINGERS 1,000 ML IV ONE (12:47)
[2025-05-17 05:29] VITALS: BP 164/85; PULSE 86; RESP 20; TEMP 98.2; O2SAT 96
[2025-05-17 06:18] VITALS: BP 144/75
[2025-05-17 06:52] LABS: PLATELET COUNT (AUTO) 237 K/uL (150-450); RED BLOOD CELL COUNT(AUTO) 4.74 MIL/uL (4.50-5.90); RED CELL DISTRIBUTION WIDTH 16.7 % (11.5-14.5); WHITE BLOOD COUNT (AUTO) 15.3 K/uL (4.5-11.0)
[2025-05-17 07:37] LABS: CALCIUM, TOTAL 9.1 mg/dL (8.8-10.5); CREATININE 1.22 mg/dL (0.60-1.30); GLOMERULAR FILTR. RATE CALC 57.0 mL/min (>60); GLUCOSE,RANDOM 106.0 mg/dL (70-110); SODIUM SERUM 140.0 mmol/L (136-145); UREA NITROGEN, BLOOD 20.0 mg/dL (7-18)
[2025-05-17] MEDS ORDERED: POTASSIUM CHLORIDE 20 MEQ ER TABLET PO PRN ×2 (13:00→15:00)
[2025-05-17] MEDS ORDERED: MAGNESIUM SULFATE 4 GM/WATER 100 ML IV PRN (13:00)
[2025-05-17] MEDS: MAGNESIUM OXIDE 400 MG TABLET PO PRN (13:44)
[2025-05-17] MEDS ORDERED: SODIUM CHLORIDE 0.9% 500 ML IV ONE (14:09)
[2025-05-17] MEDS: POTASSIUM CHL 10 MEQ/WATER 50 ML IV PRN (14:13)
[2025-05-17] MEDS ORDERED: POTASSIUM CHL 10 MEQ/WATER 50 ML IV PRN (15:00)
[2025-05-17] MEDS ORDERED: SODIUM CHLORIDE 0.9% 250 ML IV ONE (18:10)
[2025-05-17] MEDS: SODIUM BICARBONATE 75 MEQ IV ONE (18:22)
[2025-05-17] MEDS: [UNRECOGNIZED DRUG - OTHER] IV ONE (18:22)
[2025-05-17] MEDS: POTASSIUM CHLORIDE IV ONE (18:22)
[2025-05-17] MEDS: DEXTROSE IV ONE (18:22)
[2025-05-18] MEDS ORDERED: SODIUM CHLORIDE 0.9% 500 ML IV ONE (10:48)
[2025-05-18] MEDS: MAGNESIUM SULFATE 2 GM/WATER 50 ML IV PRN (13:34)
[2025-05-18 14:40] LABS: CALCIUM, TOTAL 8.8 mg/dL (8.8-10.5); CREATININE 1.22 mg/dL (0.60-1.30); GLOMERULAR FILTR. RATE CALC 57.0 mL/min (>60); GLUCOSE,RANDOM 121.0 mg/dL (70-110); SODIUM SERUM 139.0 mmol/L (136-145); UREA NITROGEN, BLOOD 13.0 mg/dL (7-18)
[2025-05-18 14:44] LABS: PHOSPHORUS 2.3 mg/dL (2.5-4.9)
[2025-05-18] MEDS: *CLINICAL-PERIPHERAL PARENTERAL NUTRITION DOSING CLINICAL ONE (15:55)
[2025-05-18] MEDS: SODIUM PHOS,M-BASIC-D-BASIC 10 MMOL in DEXTROSE 5%-WATER 100 ML IV ONE (19:59)
[2025-05-18 20:23] VITALS: BP 151/78; PULSE 78; RESP 20; TEMP 97.7; O2SAT 100
[2025-05-19] MEDS ORDERED: SODIUM CHLORIDE 0.9% 500 ML IV ONE (00:01)
[2025-05-19] MEDS: PPN SOLUTION 1 EA, SODIUM CHLORIDE 60 MEQ, SODIUM PHOS,M-BASIC-D-BASIC 20 MEQ, POTASSIU... IV SCH (00:04)
[2025-05-19 08:34] LABS: CALCIUM, TOTAL 9.0 mg/dL (8.8-10.5); CREATININE 1.32 mg/dL (0.60-1.30); GLOMERULAR FILTR. RATE CALC 52.0 mL/min (>60); GLUCOSE,RANDOM 127.0 mg/dL (70-110); SODIUM SERUM 141.0 mmol/L (136-145); UREA NITROGEN, BLOOD 14.0 mg/dL (7-18)
[2025-05-19 08:43] LABS: PHOSPHORUS 3.2 mg/dL (2.5-4.9)
[2025-05-19 09:15] VITALS: BP 184/82; PULSE 78; RESP 19; TEMP 97.7; O2SAT 98
[2025-05-19] MEDS: LABETALOL HCL 5 MG/ML 20 ML VIAL IVP ONE (10:11)
[2025-05-19] MEDS: NITROGLYCERIN 2% (1 GM=INCH) OINTMENT PACKET TP SCH (12:22)
[2025-05-19 12:55] VITALS: BP 150/88; PULSE 85
[2025-05-19] MEDS: RINGERS SOLUTION,LACTATED 1,000 ML IV ONE (16:52)
[2025-05-19 21:28] VITALS: BP 150/76; PULSE 66; RESP 20; TEMP 97.5
[2025-05-20 05:14] VITALS: BP 154/71; PULSE 73; RESP 18; TEMP 97.5
[2025-05-20 10:00] VITALS: BP 179/90; PULSE 80; RESP 18
[2025-05-20 11:10] LABS: CALCIUM, TOTAL 8.6 mg/dL (8.8-10.5); CREATININE 0.91 mg/dL (0.60-1.30); GLOMERULAR FILTR. RATE CALC > 60 mL/min (>60); GLUCOSE,RANDOM 120 mg/dL (70-110); SODIUM SERUM 134 mmol/L (136-145); UREA NITROGEN, BLOOD 17 mg/dL (7-18)
[2025-05-20 12:42] LABS: PHOSPHORUS 3.2 mg/dL (2.5-4.9)
[2025-05-20] MEDS ORDERED: PPN SOLUTION 1 EA, SODIUM CHLORIDE 80 MEQ, SODIUM PHOS,M-BASIC-D-BASIC 20 MEQ, POTASSIU... IV SCH (22:00)
[2025-05-20] MEDS: DIAZEPAM 5 MG/ML 2 ML SYRINGE IVP ONE (22:09)
[2025-05-20 22:25] VITALS: BP 136/76; PULSE 72; RESP 18; TEMP 97.7; O2SAT 94
[2025-05-21 08:47] LABS: CALCIUM, TOTAL 9.1 mg/dL (8.8-10.5); CREATININE 0.92 mg/dL (0.60-1.30); GLOMERULAR FILTR. RATE CALC > 60 mL/min (>60); GLUCOSE,RANDOM 89 mg/dL (70-110); SODIUM SERUM 135 mmol/L (136-145); UREA NITROGEN, BLOOD 17 mg/dL (7-18)
[2025-05-21 08:51] LABS: PHOSPHORUS 3.5 mg/dL (2.5-4.9)
[2025-05-21] MEDS: MAGNESIUM SULFATE 2 GM/WATER 50 ML IV ONE (11:00)
[2025-05-21] MEDS ORDERED: SODIUM CHLORIDE 0.9% 500 ML IV ONE (14:34)
[2025-05-21 15:35] VITALS: BP 159/94; PULSE 88; RESP 18; TEMP 97.2; O2SAT 98
[2025-05-21 15:37] VITALS: BP 159/94; PULSE 88; RESP 18; TEMP 97.2; O2SAT 98
[2025-05-21 20:00] VITALS: BP 140/67; PULSE 65; RESP 16; TEMP 97.5; O2SAT 95
[2025-05-22 04:00] VITALS: RESP 18
[2025-05-22 08:00] VITALS: RESP 18
[2025-05-22 09:14] LABS: CALCIUM, TOTAL 9.1 mg/dL (8.8-10.5); CREATININE 1.2 mg/dL (0.60-1.30); GLOMERULAR FILTR. RATE CALC 58.0 mL/min (>60); GLUCOSE,RANDOM 88.0 mg/dL (70-110); SODIUM SERUM 138.0 mmol/L (136-145); UREA NITROGEN, BLOOD 19.0 mg/dL (7-18)
[2025-05-22 09:37] LABS: PHOSPHORUS 3.6 mg/dL (2.5-4.9)
[2025-05-22 15:30] VITALS: RESP 18
[2025-05-23 06:05] VITALS: RESP 18
[2025-05-23 07:06] LABS: CALCIUM, TOTAL 9.0 mg/dL (8.8-10.5); CREATININE 1.24 mg/dL (0.60-1.30); GLOMERULAR FILTR. RATE CALC 56.0 mL/min (>60); GLUCOSE,RANDOM 113.0 mg/dL (70-110); SODIUM SERUM 135.0 mmol/L (136-145); UREA NITROGEN, BLOOD 22.0 mg/dL (7-18)
[2025-05-23 07:14] LABS: PHOSPHORUS 3.3 mg/dL (2.5-4.9)
[2025-05-23 08:00] VITALS: BP 175/84; PULSE 68; RESP 20
[2025-05-23] MEDS: MAGNESIUM SULFATE 2 GM/WATER 50 ML IV ONE (09:08)
[2025-05-24 09:42] LABS: CALCIUM, TOTAL 9.3 mg/dL (8.8-10.5); CREATININE 1.26 mg/dL (0.60-1.30); GLOMERULAR FILTR. RATE CALC 55.0 mL/min (>60); GLUCOSE,RANDOM 175.0 mg/dL (70-110); SODIUM SERUM 136.0 mmol/L (136-145); UREA NITROGEN, BLOOD 17.0 mg/dL (7-18)
[2025-05-24 09:43] LABS: PHOSPHORUS 3.0 mg/dL (2.5-4.9)
[2025-05-24 15:36] VITALS: BP 142/74; PULSE 61; RESP 18; O2SAT 95
[2025-05-25 19:33] VITALS: TEMP 97.5
[2025-05-26 05:28] VITALS: BP 134/95; PULSE 58; RESP 20; TEMP 97.5; O2SAT 96
[2025-05-26 09:55] VITALS: BP 146/80; PULSE 77; RESP 20; TEMP 97.5; O2SAT 99
[2025-05-26 20:20] VITALS: BP 131/93; PULSE 61; RESP 18; TEMP 97.5; O2SAT 97
[2025-05-26 21:55] LABS: GLUCOMETER DEV NAME(LOC) 4E.2; GLUCOSE,POINT OF CARE 107 MG/DL (70-110)
[2025-05-27 06:20] VITALS: BP 163/76; PULSE 56; RESP 19; TEMP 97.5; O2SAT 99
[2025-05-27 06:21] VITALS: PULSE 60
[2025-05-27 06:35] LABS: GLUCOMETER DEV NAME(LOC) 4E.2; GLUCOSE,POINT OF CARE 79 MG/DL (70-110)
[2025-05-27 22:22] VITALS: PULSE 78; RESP 18; TEMP 97.7; O2SAT 97
[2025-05-28 11:01] VITALS: BP 166/90; PULSE 54; RESP 18; TEMP 97.7; O2SAT 97
[2025-05-28 17:01] VITALS: BP 156/96; PULSE 71; RESP 20; TEMP 97.3; O2SAT 97
[2025-05-29 06:58] VITALS: BP 165/80; PULSE 90; RESP 18; TEMP 97.6; O2SAT 97
[2025-05-29 07:05] LABS: GLUCOMETER DEV NAME(LOC) 6S.1D; GLUCOSE,POINT OF CARE 89 MG/DL (70-110)
[2025-05-29 20:15] VITALS: BP 152/75; PULSE 61; RESP 18; TEMP 97.5; O2SAT 97
[2025-05-31] MEDS: LORazepam 2 MG/ML VIAL IVP PRN (01:07)
[2025-05-31 03:26] VITALS: BP 102/78; PULSE 91; RESP 18; TEMP 97.5; O2SAT 93
[2025-05-31] MEDS ORDERED: AMLO-257 PO (17:49)
[2025-05-31] MEDS ORDERED: OLAN5TAB52 PO (17:50)
[2025-05-31] MEDS ORDERED: QUET25TA PO (17:51)
== END 2025-05-31 18:53 | DRG 70 ==
LOC: EMS 20:37 → EDH 05-09 01:55 → 5N 05-09 03:30 → 4E 05-13 20:15
PROVIDERS: ADMIT Internal Medicine; ATTEND Internal Medicine
DX: G93.41 Metabolic encephalopathy (principal); E43 Unspecified severe protein-calorie malnutrition; E87.0 Hyperosmolality and hypernatremia; N17.9 Acute kidney failure, unspecified; F20.0 Paranoid schizophrenia; R45.851 Suicidal ideations; E87.1 Hypo-osmolality and hyponatremia; I69.351 Hemiplegia and hemiparesis following cerebral infarction affecting right dominant side; Z68.1 Body mass index [BMI] 19.9 or less, adult; Z59.00 Homelessness unspecified; G25.9 Extrapyramidal and movement disorder, unspecified; E86.0 Dehydration; J44.9 Chronic obstructive pulmonary disease, unspecified; K21.9 Gastro-esophageal reflux disease without esophagitis; N18.9 Chronic kidney disease, unspecified; I12.9 Hypertensive chronic kidney disease with stage 1 through stage 4 chronic kidney disease, or unspecified chronic kidney disease; D75.1 Secondary polycythemia; E11.22 Type 2 diabetes mellitus with diabetic chronic kidney disease; F01.50 Vascular dementia, unspecified severity, without behavioral disturbance, psychotic disturbance, mood disturbance, and anxiety; E11.65 Type 2 diabetes mellitus with hyperglycemia; F10.10 Alcohol abuse, uncomplicated; R62.7 Adult failure to thrive; Y90.9 Presence of alcohol in blood, level not specified; E83.42 Hypomagnesemia; Z66 Do not resuscitate; E87.6 Hypokalemia; Z53.20 Procedure and treatment not carried out because of patient's decision for unspecified reasons; E87.8 Other disorders of electrolyte and fluid balance, not elsewhere classified; K59.00 Constipation, unspecified; Z20.822 Contact with and (suspected) exposure to COVID-19; Z51.5 Encounter for palliative care; Z79.899 Other long term (current) drug therapy; Z87.891 Personal history of nicotine dependence; Z91.148 Patient's other noncompliance with medication regimen for other reason
CPT/HCPCS: 71045; 76770; 80048; 80053; 80164; 82040; 82570; 82962; 83036; 83735; 84100; 84132; 84156; 84300; 84443; 84540; 85025; 87081; 93005; G0378; G0480; J0610; J1200; J1630; J1644; J2060; J3475; J3480; J3490; J7030; J7040; J7050; J7060; J7070; J7120; J7131; 36415-L1; 36415-TC; X7700